=== PATIENT | female | born 1970 | race Two or more races ===

== ENCOUNTER 2018-02-09 16:16 | Outpatient (CLI) | payer OTHER | END 2018-02-09 16:30 | disposition home or self-care (01) | LOC: RAD 16:16 | DX: M54.2 Cervicalgia (principal) ==

== ENCOUNTER → 2020-04-19 | Outpatient (CLI) | payer OTHER | END | disposition home or self-care (01) | LOC: TOM 09:51 | PROVIDERS: ATTEND Internal Medicine Gastroenterology | DX: R10.32 Left lower quadrant pain (principal); K57.30 Diverticulosis of large intestine without perforation or abscess without bleeding; K57.32 Diverticulitis of large intestine without perforation or abscess without bleeding ==

== ENCOUNTER → 2020-05-18 | Outpatient (CLI) | payer OTHER | END | disposition home or self-care (01) | LOC: MAMO-SONO 09:15 | PROVIDERS: ATTEND Specialist | DX: Z12.31 Encounter for screening mammogram for malignant neoplasm of breast (principal); N60.11 Diffuse cystic mastopathy of right breast; N60.12 Diffuse cystic mastopathy of left breast ==

== ENCOUNTER 2020-12-13 11:29 | Emergency (ER) | payer OTHER ==
[~2020-12-13] VITALS: Ht 162.6 cm; Wt 61.2 kg
== END 2020-12-13 17:28 | disposition home or self-care (01) ==
LOC: ER 11:29
DX: U07.1 COVID-19 (principal)